=== PATIENT | female | born 2000 | race Caucasian/White ===

== ENCOUNTER 2024-04-13 16:48 | Emergency (ER) | payer OTHER, SELFPAY ==
[2024-04-13 17:03] VITALS: BP 131/79; PULSE 89; RESP 16; TEMP 37.2; O2SAT 99
[2024-04-13 18:29] LABS: Basophils Percent Auto 0.4 % (0.0-3.0); Eosinophils Percent Auto 0.3 % (0.0-7.0); Hematocrit 39.4 % (33.0-51.0); Hemoglobin* 13.5 gm/dL (12.0-16.0); Immature Granulocytes Pct Auto 0.3 %; Lymphocytes Percent Auto 20.7 % (20-44); Mean Corpuscular HGB Conc 34 gm/dL (32-36); Mean Corpuscular Hemoglobin 30 pg (26-34); Mean Corpuscular Volume 86 fL (80-100); Monocytes Percent Auto 8.5 % (0.0-11.0); Neutrophils Percent Auto 69.8 % (42.0-72.0); Platelet Count* 354 K/uL (140-440); RDW Coefficient of Variation % 11.3 % (11.5-15.5); Red Blood Count 4.57 m/uL (4.00-5.20); Slide Review Reflex No; White Blood Count* 13.87 K/uL (4.50-11.00)
[2024-04-13] MEDS: 0.9 % SODIUM CHLORIDE 500 ML 500 ML 1000 ML IV ×2 (18:31→19:01)
[2024-04-13 18:43] LABS: Albumin* 4.6 g/dL (3.3-5.0)
[2024-04-13 18:44] LABS: Chloride* 101 mmol/L (96-114); Potassium* 3.7 mmol/L (3.6-5.1); Sodium* 134 mmol/L (135-149)
--- NOTE | 2024-04-13 18:45 | ED.GENADULT ---
HPI - General Adult General Date Seen: 04/13/24 Chief complaint: Nausea/Vomiting Stated complaint: vomiting, 8 wks Time Seen by Provider: 04/13/24 17:55 Source: patient Mode of arrival: ambulatory Limitations: no limitations History of Present Illness HPI narrative: Patient is 8 weeks presenting to the emergency department for nausea and vomiting. She states symptoms have been going on for the past few days. She states every time she tries to eat anything she vomits. She is able have a small amount of mass pills last night but that was it. Tried to drink today and vomited again. Has been using Zofran without much improvement in her symptoms. Also is concerned because she is continuing to lose weight and is down 4 lb over the past week. Is not having any abdominal pain. Has not had a bowel movement for over a week now she states. Denies fevers, chills, chest pain, shortness of breath, dysuria, polyuria, headache, vision changes, weakness, numbness. Does states she had an ultrasound done recently showing a viable . No other concerns noted at this time. Related Data Allergies Allergy/AdvReac Type Severity Reaction Status Date / Time Penicillins AdvReac Mild Hives Verified 04/13/24 17:09 Review of Systems Status of ROS: Reports: 10 or more systems reviewed and unremarkable except as noted in History and below [facility] Social History Smoking Status: Never smoker Exam Narrative: Exam Narrative: Const: Well-nourished, Well-developed, in mild distress Eyes: PERRL, no conjunctival injection, and symmetrical lids HENT: Atraumatic external nose and ears. Moist mucous membranes. Neck: Symmetric, trachea midline, No thyromegaly. CVS: RRR, No murmurs or gallops. Peripheral pulses 2+ and equal in all extremities RESP: Unlabored respiratory effort. Clear to auscultation bilaterally. GI: Nontender/Nondistended, No rebound or guarding. MSK:Extremities w/o deformity, Normal Active ROM Skin: Warm, Dry. No rashes or lesions. Neuro: Normal Muscle tone, No focal neurological deficits. Psych: Awake, Alert, & Oriented x3. Appropriate mood and affect. Const: Vital Signs, click to edit/add: Vital Signs - 24 hr 10/19/24 17:03 Temperature 99.0 F Pulse Rate [Pulse Oximeter] 89 Respiratory Rate 16 Blood Pressure [Ri ght Upper Arm] 131/79 Pulse Oximetry 99 Oxygen Delivery Me thod Room Air Course Vital Signs Vital signs: Initial Vital Signs Temperature 99.0 F 04/13/24 17:03 Temperature Source Temporal Artery Scan 04/13/24 17:03 Pulse Rate 89 04/13/24 17:03 Pulse Rhythm Regular 04/13/24 17:03 Respiratory Rate 16 04/13/24 17:03 Blood Pressure 131/79 04/13/24 17:03 Blood Pressure Mean 96 04/13/24 17:03 Blood Pressure Position Sitting 04/13/24 17:03 Pulse Oximetry 99 04/13/24 17:03 Oxygen Delivery Method Room Air 04/13/24 17:03 Vital Signs Temperature 99.0 F 04/13/24 17:03 Pulse Rate 89 04/13/24 17:03 Respiratory Rate 16 04/13/24 17:03 Blood Pressure 131/79 04/13/24 17:03 Pulse Oximetry 99 04/13/24 17:03 Oxygen Delivery Method Room Air 04/13/24 17:03 Temperature 99.0 F 04/13/24 17:03 Pulse Rate 89 04/13/24 17:03 Respiratory Rate 16 04/13/24 17:03 Blood Pressure 131/79 04/13/24 17:03 Pulse Oximetry 99 04/13/24 17:03 Oxygen Delivery Method Room Air 04/13/24 17:03 Medications Administered Medications: Generic Name Dose Route Start Last Admin Trade Name Freq PRN Reason Stop Dose Admin Ondansetron HCl 4 mg 04/13/24 19:07 04/13/24 19:05 Ondansetron 2 Mg/Ml Inj IVP 04/13/24 19:08 4 mg ONCE ONE Administration Discontinued Medications Generic Name Dose Route Start Last Admin Trade Name Freq PRN Reason Stop Dose Admin Sodium Chloride 500 mls @ 1,000 mls/hr 04/13/24 18:11 04/13/24 19:01 0.9 % Sodium Chloride 500 Ml IV 04/13/24 18:40 Infused .Q30M ONE Infusion Sodium Chloride 500 mls @ 1,000 mls/hr 04/13/24 18:11 04/13/24 19:31 0.9 % Sodium Chloride 500 Ml IV 04/13/24 18:40 Infused .Q30M ONE Infusion Metoclopramide HCl 10 mg 04/13/24 18:06 04/13/24 18:27 Metoclopramide Hcl 5 Mg/Ml Inj IVP 04/13/24 18:07 Not Given ONCE ONE Medical Decision Making MDM Narrative Medical decision making narrative: Patient is 23-year-old female presenting to the emergency department for hyperemesis gravidarum. Will do a CBC, CMP, magnesium, lipase, urinalysis. She will get 1 L of fluids and be given 10 mg IV Reglan. At this time considering she is hyperemesis gravidarum is the most likely diagnosis. Less likely to be SBO, appendicitis, cholecystitis, pancreatitis. Could possibly be a gastroenteritis. Lab work will help will help with the differential. Patient's lab work shows no concerning abnormalities. She has slightly elevated white blood cell count but this is normal with . Urinalysis is currently pending. She is feeling better after Zofran and fluids and feels safe to go home. I will give her up prescription via [facility] of Zofran as she is running low. Urinalysis shows ketonuria as expected but no signs of UTI. She is feeling well at this time and safe for discharge and informed the importance of staying well hydrated and using her Zofran. She states she understands and feels comfortable for discharge at this time. Lab Data Labs: Lab Results 04/13/24 04/13/24 Range/Units 18:20 19:45 WBC 13.87 H (4.50-11.00) K/uL RBC 4.57 (4.00-5.20) m/uL Hgb 13.5 (12.0-16.0) gm/dL Hct 39.4 (33.0-51.0) % MCV 86 (80-100) fL MCH 30 (26-34) pg MCHC 34 (32-36) gm/dL RDW Coeff of Mary 11.3 L (11.5-15.5) % Plt Count 354 (140-440) K/uL Neut % (Auto) 69.8 (42.0-72.0) % Lymph % (Auto) 20.7 (20-44) % Hancock % (Auto) 8.5 (0.0-11.0) % Eos % (Auto) 0.3 (0.0-7.0) % Baso % (Auto) 0.4 (0.0-3.0) % Neut # (Auto) 9.70 H (1.7-7.0) K/uL Lymph # (Auto) 2.90 (0.90-2.90) K/uL Hancock # (Auto) 1.20 H (0.00-0.90) K/UL Eos # (Auto) 0.00 (0.00-0.50) K/uL Baso # (Auto) 0.10 (0.00-0.30) K/uL Abs Immat Gran (auto) 0.00 (0.00-0.30) K/uL Imm/Tot Granulo (auto) 0.3 % Sodium 134 L (135-149) mmol/L Potassium 3.7 (3.6-5.1) mmol/L Chloride 101 (96-114) mmol/L Carbon Dioxide 22 (20-32) mmol/L Anion Gap 11 (7-15) mEq/L BUN 8 (5-24) mg/dL Creatinine 0.6 (0.5-1.5) mg/dL Estimated GFR 128 ml/min Glucose 85 (60-115) mg/dL Calcium 9.5 (8.4-10.6) mg/dL Magnesium 2.0 (1.5-2.6) mg/dL Total Bilirubin 0.4 (0.1-1.5) mg/dL AST 28 (12-35) U/L ALT 10 (4-35) U/L Alkaline Phosphatase 63 (40-150) U/L Total Protein 7.2 (6.0-8.3) g/dL Albumin 4.6 (3.3-5.0) g/dL Lipase 90 (23-300) U/L Urine Color Yellow (Yellow) Urine Appearance Cloudy A (Clear) Urine pH 5.5 (5.0-8.5) Ur Specific Whitestone >= 1.030 (1.000-1.030) Urine Protein 1+ A (Negative) Urine Glucose (UA) Negative (Negative) Urine Ketones 4+ A (Negative) Urine Blood Negative (Negative) Urine Nitrite Negative (Negative) Urine Bilirubin Negative (Negative) Urine Urobilinogen 0.2 (0.2-1.0) Ur Leukocyte Esterase Negative (Negative) Urine RBC 2-5 A (0-2) Urine WBC 5-10 A (0-5) Ur Squamous Epith Cells None (None-Few) Urine Bacteria None (None) Urine Mucus Moderate A (None) Discharge Plan Discharge Clinical Impression: Hyperemesis gravidarum Patient Disposition: Home, Self-Care Condition: Stable Instructions: Hyperemesis Gravidarum (ED) Additional Instructions: Continue take the Zofran as directed. Make sure to stay well hydrated. Return to emergency department for new or worsening symptoms. Recommend following up with your OB Gy[facility] if symptoms persist. Follow Up/Referrals: Provider,Not a Local [Primary Care Provider] - Stand Alone Forms: [employer] Info Instructions
[2024-04-13 18:46] LABS: Alkaline Phosphatase* 63 U/L (40-150); Anion Gap 11 mEq/L (7-15); Aspartate Amino Transferase* 28 U/L (12-35); Bilirubin Total* 0.4 mg/dL (0.1-1.5); Carbon Dioxide* 22 mmol/L (20-32); Creatinine* 0.6 mg/dL (0.5-1.5); Estimated Glomerular Filt Rate 128 ml/min; Total Protein* 7.2 g/dL (6.0-8.3)
[2024-04-13 18:47] LABS: Alanine Aminotransferase* 10 U/L (4-35); Blood Urea Nitrogen* 8 mg/dL (5-24); Calcium* 9.5 mg/dL (8.4-10.6); Glucose* 85 mg/dL (60-115); Lipase* 90 U/L (23-300)
[2024-04-13] MEDS: ONDANSETRON 2 MG/ML inj 4 MG IVP (19:05)
[2024-04-13 19:49] LABS: Appearance Urine Cloudy (Clear); Bilirubin Urine Negative (Negative); Blood Urine Negative (Negative); Color Urine Yellow (Yellow); Glucose Urine Negative (Negative); Ketones Urine 4+ (Negative); Leukocyte Esterase Urine Negative (Negative); Nitrite Urine Negative (Negative); Protein Urine 1+ (Negative); Specific Gravity Urine >= 1.030 (1.000-1.030); Urobilinogen Urine 0.2 (0.2-1.0); pH Urine 5.5 (5.0-8.5)
[2024-04-13 19:58] LABS: Mucus Urine Moderate
== END 2024-04-13 20:15 | disposition home or self-care (01) ==
PROVIDERS: Emergency Provider Student in an Organized Health Care Education/Training Program
DX: O21.0 Mild hyperemesis gravidarum (principal); Z3A.08 8 weeks gestation of pregnancy
CPT/HCPCS: 36415; 80053; 81001; 83690; 83735; 85025; 87086; 96374; 99283; J2405; J7030

== ENCOUNTER 2024-04-27 17:43 | Emergency (ER) | payer OTHER, SELFPAY ==
[2024-04-27 17:50] VITALS: BP 147/89; PULSE 115; RESP 18; TEMP 36.4; O2SAT 98; BMI 28.2
[2024-04-27] MEDS: DOCUSATE SODIUM/BENZOCAINE 5 ML ENEMA PR (18:22)
[2024-04-27] MEDS: ELECTROLYTES/DEXTROSE ORAL SOL 1,000 ML 1014 ML PO (20:24)
[2024-04-27 20:25] VITALS: BP 122/84; PULSE 74; RESP 16; O2SAT 98
--- NOTE | 2024-04-27 20:42 | ED.ABDPAIN ---
HPI - Abdominal Pain General Date Seen: 04/27/24 Chief Complaint: Abdominal Pain Stated Complaint: possible bowel blockage Time Seen by Provider: 04/27/24 17:45 Source: patient Mode of arrival: ambulatory Limitations: no limitations History of Present Illness HPI narrative: Patient is a very nice 23-year-old at 11 weeks gestation, here with constipation she has not had a bowel movement for the last 5 days, she has baking Zofran for hyperemesis, and drinking water. She has not been drinking electrolyte solutions, so worried she may be dehydrated although she is peeing normally she is passing gas, is still having some retching episodes vomiting of bile that this is normal for her with her hyperemesis. Denies no significant abdominal pain, she has no fevers chills no dysuria frequency noted. Related Data Patient : Yes (11 wks ) Allergies Allergy/AdvReac Type Severity Reaction Status Date / Time Penicillins AdvReac Mild Hives Verified 04/27/24 17:54 Review of Systems Status of ROS Reports: 10 or more systems reviewed and unremarkable except as noted in History and below PFSH PFS Social History Smoking Status: Never smoker Exam Narrative: Exam Narrative: On examination in room 7 she is in no apparent distress she is pleasant and alert, she has good hydration status mouth opening normal neck is supple no meningismus, good skin turgor good air entry bilaterally no wheezing crackles noted heart sounds normal her abdomen is soft, there is no tenderness to palpation bowel sounds are normal in all quadrants there is no organomegaly. With a nurse present rectal exam is done which shows a lot of stool in the rectal vault, this is broken up, we did give her enema with good results. Const: Vital Signs, click to edit/add: Vital Signs - 24 hr 04/27/24 17:50 04/27/24 20:25 Temperature 97.6 F Pulse Rate [Right Pulse Oximeter] 115 H 74 Respiratory Rate 18 16 Blood Pressure [Ri ght Upper Arm] 147/89 H 122/84 Pulse Oximetry 98 98 Oxygen Delivery Me thod Room Air Room Air Documenting provider has reviewed patient's vital signs: yes Course Course ED Course: I did discuss with her the diagnosis constipation, I do not think she is dehydrated, she will use oral fluids, and we did give her some Pedialyte she can take with her. Follow up here if signs symptoms of worsening. Vital Signs Vital signs: Initial Vital Signs Temperature 97.6 F 04/27/24 17:50 Temperature Source Temporal Artery Scan 04/27/24 17:50 Pulse Rate 115 H 04/27/24 17:50 Pulse Rhythm Regular 04/27/24 17:50 Pulse Strength 3+ Normal 04/27/24 17:50 Respiratory Rate 18 04/27/24 17:50 Blood Pressure 147/89 H 04/27/24 17:50 Blood Pressure Mean 108 H 04/27/24 17:50 Blood Pressure Position Sitting 04/27/24 17:50 Pulse Oximetry 98 04/27/24 17:50 Oxygen Delivery Method Room Air 04/27/24 17:50 Vital Signs Temperature 97.6 F 04/27/24 17:50 Pulse Rate 115 H 04/27/24 17:50 Respiratory Rate 18 04/27/24 17:50 Blood Pressure 147/89 H 04/27/24 17:50 Pulse Oximetry 98 04/27/24 17:50 Oxygen Delivery Method Room Air 04/27/24 17:50 Temperature 97.6 F 04/27/24 17:50 Pulse Rate 74 04/27/24 20:25 Respiratory Rate 16 04/27/24 20:25 Blood Pressure 122/84 04/27/24 20:25 Pulse Oximetry 98 04/27/24 20:25 Oxygen Delivery Method Room Air 04/27/24 20:25 Medications Administered Medications: Generic Name Dose Route Start Last Admin Trade Name Freq PRN Reason Stop Dose Admin Oral Electrolytes 1,014 ml 04/27/24 18:19 04/27/24 20:24 Electrolytes/Dextrose Oral Karissa 1,000 Ml PO 1,000 ml ONCE PRN Administration Discontinued Medications Generic Name Dose Route Start Last Admin Trade Name Freq PRN Reason Stop Dose Admin Docusate Sodium/Benzocaine 5 ml 04/27/24 18:16 04/27/24 18:22 Docusate Sodium/Benzocaine 5 Ml Enema WI 04/27/24 18:17 5 ml ONCE ONE Administration Discharge Plan Discharge Clinical Impression: Constipation, Hyperemesis gravidarum, 11 weeks gestation of Patient Disposition: Home w/ Parent or Adult Condition: Improved Instructions: Hyperemesis Gravidarum (ED), Constipation (DC) Additional Instructions: Home rest continue with the MiraLax 1 cap full with 20 oz of water, you also need to use the rehydration solutions, as he will drop your electrolytes, undoubtedly this is the and Zofran causing your constipation. You may use also fiber, follow-up here further signs and symptoms of worsening. Such as increasing abdominal pain vomiting, inability to pass either gas or stools. Activity Level: Light activity Follow Up/Referrals: Provider,Not a Local [Primary Care Provider] - Stand Alone Forms: [employer] Info Instructions
== END 2024-04-27 20:44 | disposition home or self-care (01) ==
PROVIDERS: Emergency Provider Family Medicine
DX: O21.0 Mild hyperemesis gravidarum (principal); Z3A.11 11 weeks gestation of pregnancy
CPT/HCPCS: 99283; A9270